=== PATIENT | female | born 1935 | race African-American/Black ===

== ENCOUNTER 2017-06-15 04:10 | Inpatient (IN) | payer OTHER ==
[~2017-06-15] VITALS: Ht 167.6 cm; Wt 93.8 kg
[2017-06-15] MEDS ORDERED: ONDANSETRON HCL 4 MG/2 ML VIAL IV ONE (04:45)
[2017-06-15] MEDS ORDERED: SODIUM CHLORIDE 0.9% 500 ML IVB ONE (04:45)
[2017-06-15] MEDS ORDERED: HYDROmorphone HCL 2 MG/ML VL IV ONE (04:45)
[2017-06-15 05:53] LABS: Allen Test Yes; Base Excess -2.4 mmol/L (-2.0-2.0); Blood 02Sat 96.6 % (96-100); Blood COHb 0.2 % (0.5-1.5); Blood MetHb 0.4 % (0.0-1.5); HHb 3.4 % (0.0-5.0); MODE NASAL CANNULA; PCO2 36.7 mmHg (35.0-45.0); PCO2(T) 36.7 mmHg (35.0-45.0); PO2 97.5 mmHg (80.0-100.0); PO2(T) 97.5 mmHg (80.0-100.0); Sample Type Arterial; pH 7.396 (7.350-7.450)
[2017-06-15 06:59] LABS: Basophils # (auto) 0 uL; CONDITION Y; DEFINITIVE SEE PRINTOUT; Eosinophils # (auto) 0 uL; Hematocrit 34.5 % (36.0-46.0); Hemoglobin 11.3 g/dL (12.2-16.2); Lymphocytes # (auto) 0.5 uL; Lymphocytes % (auto) 3.3 % (10.0-50.0); Mean Corpuscular Hemoglobin 25.7 pg (28.0-32.0); Mean Corpuscular Hgb Conc. 32.8 g/dL (32.0-36.0); Mean Corpuscular Volume 78.3 fL (80.0-100.0); Mean Platelet Volume 10.7 fL (7.4-10.4); Monocytes # (auto) 1.1 uL; Monocytes % (auto) 7.5 % (0.0-12.0); Neutrophils # (auto) 13.4 uL; Neutrophils % (auto) 89.2 % (37.0-80.0); Platelet Count (auto) 141 10^3/uL (140-450); Red Cell Distribution Width 16.4 % (11.6-16.0)
[2017-06-15 07:15] LABS: INR 0.99 (0.9-1.15); Prothrombin Time 10.8 sec (9.37-12.3)
[2017-06-15 07:21] LABS: Albumin 3.1 g/dL (3.4-5.0); BUN/Creatinine Ratio 17.1; Bilirubin, Total 0.6 mg/dL (0.2-1.0); Calcium 9.1 mg/dL (8.5-10.1); Magnesium 2.3 mg/dL (1.6-2.6); Potassium 3.4 mmol/L (3.5-5.1); Total Protein 6.8 g/dL (6.4-8.2)
[2017-06-15] MEDS ORDERED: POTASSIUM CHL 10% (20 MEQ/15ML) ORAL SOLN PO ONE (09:00)
[2017-06-15 09:58] LABS: Urine Bilirubin Negative (Negative); Urine Blood 2+ /uL (Negative); Urine Color Yellow (Yellow); Urine Glucose Normal (Normal); Urine Ketone TRACE (Negative); Urine Mucus FEW (None Seen); Urine Nitrite Negative (Negative); Urine RBC 2 /hpf (0 - 4); Urine Squamous Epithelial Cell FEW /hpf (<5); Urine Urobilinogen Normal (Negative); Urine pH 5.5 (5.0-8.0)
[2017-06-15] MEDS ORDERED: FLUO20CA19 PO (11:47)
[2017-06-15] MEDS ORDERED: AML5T PO (11:47)
[2017-06-15] MEDS ORDERED: TRAZ100T2 PO (11:47)
[2017-06-15] MEDS ORDERED: ALBU1AER4 IN (11:47)
[2017-06-15] MEDS ORDERED: GABA-339 PO (11:47)
[2017-06-15] MEDS ORDERED: IPRATROPIUM BROM 0.5 MG/2.5ML INH SOL NEB ONE (12:15)
[2017-06-15] MEDS ORDERED: ALBUTEROL SULF 2.5 MG/0.5ML(0.5%) NEB SOLN NEB ONE (12:15)
[2017-06-15] MEDS ORDERED: ACETAMINOPHEN 325 MG TAB PO ONE (12:15)
[2017-06-15] MEDS ORDERED: cloNIDine HCL 0.1 MG TAB PO PRN (13:00)
[2017-06-15] MEDS ORDERED: cefTRIAXone 1GM/50ML D5W 50 ML IV ONE (13:00)
[2017-06-15] MEDS ORDERED: VANCOMYCIN PER PHARMACY 0 MG IV SCH (13:00)
[2017-06-15] MEDS ORDERED: DEXTROSE (50%) 50ML SYRG IV PRN (13:00)
[2017-06-15] MEDS ORDERED: NITROGLYCERIN 0.4 MG SL TAB SL PRN (13:15)
[2017-06-15] MEDS ORDERED: TEMAZEPAM 15 MG CAP PO PRN (13:15)
[2017-06-15] MEDS ORDERED: MORPHINE SULF INJ 2 MG/ML SYRINGE 1ML IV PRN (13:15)
[2017-06-15] MEDS ORDERED: ONDANSETRON HCL 4 MG/2 ML VIAL IV PRN (13:15)
[2017-06-15] MEDS ORDERED: DOCUSATE SOD 100 MG CAP PO PRN (13:15)
[2017-06-15] MEDS: SODIUM CHLOR 0.9% PF (SALINE LOCK) 10ML VIAL IV SCH ×2 (13:34→22:00)
[2017-06-15 13:38] LABS: Lactic Acid w/Reflex 2.2 mmol/L (0.4-2.0)
[2017-06-15 13:41] LABS: REFLEX LACTIC ACID YES OR NO NO
[2017-06-15] MEDS ORDERED: MULTIPLE VITAMIN TAB PO ONE (13:45)
[2017-06-15] MEDS ORDERED: amLODIPine BESYLATE 5 MG TAB PO ONE (13:45)
[2017-06-15] MEDS ORDERED: FAMOTIDINE 20 MG TAB PO ONE (13:45)
[2017-06-15 13:50] LABS: B-Type Natriuretic Peptide 124.33 pg/mL (0-100)
[2017-06-15] MEDS: GABAPENTIN 400 MG CAP PO SCH ×2 (13:50→23:05)
[2017-06-15] MEDS ORDERED: GABAPENTIN 300 MG CAP PO SCH (14:00)
[2017-06-15] MEDS ORDERED: VANCOMYCIN 1GM/250ML D5W 250 ML IV ONE (14:00)
[2017-06-15] MEDS ORDERED: VANCOMYCIN 1,250 MG in D5W 5% 250 ML IV ONE (14:00)
[2017-06-15 15:30] VITALS: BP 122/54
[2017-06-15] MEDS: InsuLIN REG 1unit/0.01ml Soln (100units/ml) SC SCH ×2 (17:00→23:05)
[2017-06-15] MEDS: ACCU-CHEK COMFORT CURVE STRIP VI SCH ×2 (17:00→22:00)
[2017-06-15] MEDS: ALBUTEROL SULF 2.5 MG/0.5ML(0.5%) NEB SOLN NEB SCH (17:38)
[2017-06-15] MEDS: IPRATROPIUM BROM 0.5 MG/2.5ML INH SOL NEB SCH (17:39)
[2017-06-15 18:07] LABS: Allen Test Yes; Base Excess -2.8 mmol/L (-2.0-2.0); Blood 02Sat 81.4 % (96-100); Blood COHb 0.1 % (0.5-1.5); Blood MetHb 0.4 % (0.0-1.5); HCO3 24.7 mmol/L (22-26.0); HHb 18.5 % (0.0-5.0); MODE NASAL CANNULA; PCO2 54.4 mmHg (35.0-45.0); PCO2(T) 54.4 mmHg (35.0-45.0); PO2 50.8 mmHg (80.0-100.0); PO2(T) 50.8 mmHg (80.0-100.0); Room 0244ADST; Sample Type Arterial; pH 7.275 (7.350-7.450)
[2017-06-15] MEDS: Boost Glucose Control 8 Ounces PO SCH (18:16)
[2017-06-15] MEDS: FLUoxetine HCL 20 MG CAP PO SCH (18:31)
[2017-06-15] MEDS ORDERED: methylPREDNISolone SOD SUCC 125 MG/2 ML VL IV ONE (19:00)
[2017-06-15 20:00] VITALS: BP 132/97
[2017-06-15 20:13] VITALS: BP 122/54
[2017-06-15 20:20] LABS: Allen Test Yes; Base Excess -1.3 mmol/L (-2.0-2.0); Blood 02Sat 96.2 % (96-100); Blood COHb 0.3 % (0.5-1.5); Blood MetHb 0.5 % (0.0-1.5); HCO3 22.7 mmol/L (22-26.0); HHb 3.8 % (0.0-5.0); MODE MASK - BIPAP; O2Hb 95.4 % (94.0-97.0); PCO2 35.6 mmHg (35.0-45.0); PCO2(T) 36.4 mmHg (35.0-45.0); PIP 10; PO2 88.2 mmHg (80.0-100.0); Room 0296T; Sample Type Arterial; Spont Vt 567; pH 7.422 (7.350-7.450)
[2017-06-15 22:00] VITALS: BP 114/52
[2017-06-15] MEDS ORDERED: FAMOTIDINE 20 MG TAB PO SCH (22:00)
[2017-06-15] MEDS: traZODone HCL 50 MG TAB PO SCH (23:04)
[2017-06-15] MEDS: methylPREDNISolone SOD SUCC 40 MG/ML VL IV SCH (23:06)
[2017-06-16] VITALS (7 sets, daily range): BP systolic 101–122; BP diastolic 45–66
[2017-06-16] MEDS: ALBUTEROL SULF 2.5 MG/0.5ML(0.5%) NEB SOLN NEB SCH ×4 (02:55→20:21)
[2017-06-16] MEDS: IPRATROPIUM BROM 0.5 MG/2.5ML INH SOL NEB SCH ×4 (02:55→20:21)
[2017-06-16 06:18] LABS: CONDITION Y; DEFINITIVE SEE PRINTOUT; Hematocrit 33.2 % (36.0-46.0); Hemoglobin 10.8 g/dL (12.2-16.2); Mean Corpuscular Hemoglobin 26.1 pg (28.0-32.0); Mean Corpuscular Hgb Conc. 32.7 g/dL (32.0-36.0); Mean Corpuscular Volume 79.8 fL (80.0-100.0); Mean Platelet Volume 11.6 fL (7.4-10.4); Platelet Count (auto) 127 10^3/uL (140-450); Red Cell Distribution Width 16.5 % (11.6-16.0); SUSPECT SEE PRINTOUT; White Blood Cell 15.7 10^3/uL (4.4-10.8)
[2017-06-16 06:39] LABS: Albumin 2.6 g/dL (3.4-5.0); Calcium 8.5 mg/dL (8.5-10.1); Potassium 4.4 mmol/L (3.5-5.1)
[2017-06-16] MEDS: GABAPENTIN 400 MG CAP PO SCH ×3 (06:43→21:00)
[2017-06-16] MEDS: methylPREDNISolone SOD SUCC 40 MG/ML VL IV SCH ×3 (06:44→17:58)
[2017-06-16] MEDS: SODIUM CHLOR 0.9% PF (SALINE LOCK) 10ML VIAL IV SCH ×3 (06:44→20:47)
[2017-06-16 06:45] LABS: Bilirubin, Total 0.4 mg/dL (0.2-1.0); Total Protein 6.2 g/dL (6.4-8.2)
[2017-06-16] MEDS: ACCU-CHEK COMFORT CURVE STRIP VI SCH ×4 (06:50→21:02)
[2017-06-16] MEDS: InsuLIN REG 1unit/0.01ml Soln (100units/ml) SC SCH ×4 (06:55→21:02)
[2017-06-16 07:22] LABS: Metamyelocytes % 0; Myelocytes % 0; Promyelocytes % 0; Reactive Lymphocytes 0
[2017-06-16] MEDS: Boost Glucose Control 8 Ounces PO SCH ×3 (08:16→17:58)
[2017-06-16 08:40] LABS: Hypochromia Slight; Large Platelets FEW; Platelet Estimate Decreased
[2017-06-16] MEDS: FLUoxetine HCL 20 MG CAP PO SCH ×2 (08:48→17:58)
[2017-06-16] MEDS: PIPERACILLIN-TAZOB 3.375GM/D5W100ML IV SCH ×3 (08:48→20:47)
[2017-06-16] MEDS ORDERED: cefTRIAXone 1GM/50ML D5W 50 ML IV SCH (09:00)
[2017-06-16] MEDS: amLODIPine BESYLATE 5 MG TAB PO SCH (10:00)
[2017-06-16] MEDS: ENOXAPARIN SOD 40 MG/0.4 ML SYRINGE SC SCH (10:00)
[2017-06-16] MEDS: FAMOTIDINE 20 MG TAB PO SCH (10:00)
[2017-06-16] MEDS: MULTIPLE VITAMIN TAB PO SCH (10:00)
[2017-06-16] MEDS: HYDROcodone-ACET 5/325MG TAB PO PRN ×2 (10:29→19:42)
[2017-06-16] MEDS: SOD CHL 0.45% 1,000 ML IV SCH (11:31)
[2017-06-16] MEDS: ACETAMINOPHEN 325 MG TAB PO PRN (20:48)
[2017-06-16] MEDS: traZODone HCL 50 MG TAB PO SCH (21:01)
[2017-06-16] MEDS ORDERED: cloNIDine HCL 0.1 MG TAB PO PRN (23:30)
[2017-06-17] MEDS: methylPREDNISolone SOD SUCC 40 MG/ML VL IV SCH ×4 (00:12→18:18)
[2017-06-17] MEDS: PIPERACILLIN-TAZOB 3.375GM/D5W100ML IV SCH ×4 (03:28→20:44)
[2017-06-17 03:58] LABS: Basophils # (auto) 0 uL; CONDITION Y; DEFINITIVE SEE PRINTOUT; Eosinophils # (auto) 0 uL; Hematocrit 33.4 % (36.0-46.0); Hemoglobin 10.6 g/dL (12.2-16.2); Lymphocytes # (auto) 0.3 uL; Lymphocytes % (auto) 2.1 % (10.0-50.0); Mean Corpuscular Hemoglobin 25.4 pg (28.0-32.0); Mean Corpuscular Hgb Conc. 31.6 g/dL (32.0-36.0); Mean Corpuscular Volume 80.4 fL (80.0-100.0); Mean Platelet Volume 11.6 fL (7.4-10.4); Monocytes # (auto) 0.3 uL; Monocytes % (auto) 2.3 % (0.0-12.0); Neutrophils # (auto) 12.6 uL; Neutrophils % (auto) 95.6 % (37.0-80.0); Platelet Count (auto) 129 10^3/uL (140-450); Red Cell Distribution Width 16.5 % (11.6-16.0); SUSPECT SEE PRINTOUT; White Blood Cell 13.2 10^3/uL (4.4-10.8)
[2017-06-17 04:03] LABS: BUN/Creatinine Ratio 25.9; Calcium 9.2 mg/dL (8.5-10.1); Lactic Acid w/Reflex 2.2 mmol/L (0.4-2.0); Magnesium 2.7 mg/dL (1.6-2.6); Phosphorus 2.6 mg/dL (2.5-4.90); Potassium 4.6 mmol/L (3.5-5.1)
[2017-06-17 04:23] LABS: REFLEX LACTIC ACID YES OR NO YES
[2017-06-17 05:30] VITALS: BP 111/60
[2017-06-17] MEDS: SOD CHL 0.45% 1,000 ML IV SCH ×2 (05:57→14:10)
[2017-06-17] MEDS: SODIUM CHLOR 0.9% PF (SALINE LOCK) 10ML VIAL IV SCH ×3 (05:58→21:42)
[2017-06-17] MEDS: GABAPENTIN 400 MG CAP PO SCH ×4 (05:59→21:42)
[2017-06-17] MEDS: ACCU-CHEK COMFORT CURVE STRIP VI SCH ×4 (05:59→22:00)
[2017-06-17] MEDS: InsuLIN REG 1unit/0.01ml Soln (100units/ml) SC SCH ×5 (05:59→22:00)
[2017-06-17] MEDS: IPRATROPIUM BROM 0.5 MG/2.5ML INH SOL NEB SCH ×4 (06:26→18:18)
[2017-06-17] MEDS: ALBUTEROL SULF 2.5 MG/0.5ML(0.5%) NEB SOLN NEB SCH ×4 (06:26→22:41)
[2017-06-17 07:30] VITALS: BP 115/67
[2017-06-17] MEDS: Boost Glucose Control 8 Ounces PO SCH ×3 (08:22→18:00)
[2017-06-17] MEDS: FLUoxetine HCL 20 MG CAP PO SCH ×2 (08:23→18:19)
[2017-06-17 09:32] VITALS: BP 115/67
[2017-06-17] MEDS: FAMOTIDINE 20 MG TAB PO SCH (10:54)
[2017-06-17] MEDS: ENOXAPARIN SOD 40 MG/0.4 ML SYRINGE SC SCH (10:54)
[2017-06-17] MEDS: amLODIPine BESYLATE 5 MG TAB PO SCH (10:55)
[2017-06-17] MEDS: MULTIPLE VITAMIN TAB PO SCH (10:55)
[2017-06-17 12:50] VITALS: BP 114/57
[2017-06-17] MEDS: HYDROcodone-ACET 5/325MG TAB PO PRN (14:07)
[2017-06-17] MEDS ORDERED: ALBUTEROL SULF 2.5 MG/0.5ML(0.5%) NEB SOLN NEB SCH (16:00)
[2017-06-17 17:03] VITALS: BP 103/48
[2017-06-17] MEDS: traZODone HCL 50 MG TAB PO SCH (21:42)
[2017-06-17 22:00] VITALS: BP 114/55
[2017-06-17] MEDS: ACETAMINOPHEN 325 MG TAB PO PRN (22:56)
[2017-06-18] MEDS: methylPREDNISolone SOD SUCC 40 MG/ML VL IV SCH ×2 (00:07→05:42)
[2017-06-18] MEDS: ALBUTEROL SULF 2.5 MG/0.5ML(0.5%) NEB SOLN NEB SCH ×4 (02:00→14:05)
[2017-06-18] MEDS: PIPERACILLIN-TAZOB 3.375GM/D5W100ML IV SCH ×2 (03:08→09:00)
[2017-06-18] MEDS: SOD CHL 0.45% 1,000 ML IV SCH (03:18)
[2017-06-18 05:00] VITALS: BP 138/62
[2017-06-18 05:40] LABS: Basophils # (auto) 0 uL; CONDITION Y; DEFINITIVE SEE PRINTOUT; Eosinophils # (auto) 0 uL; Hematocrit 36.5 % (36.0-46.0); Hemoglobin 11.7 g/dL (12.2-16.2); Lymphocytes # (auto) 0.5 uL; Lymphocytes % (auto) 5.8 % (10.0-50.0); Mean Corpuscular Hemoglobin 25.4 pg (28.0-32.0); Mean Corpuscular Volume 79.4 fL (80.0-100.0); Mean Platelet Volume 11.5 fL (7.4-10.4); Monocytes # (auto) 0.2 uL; Monocytes % (auto) 2.4 % (0.0-12.0); Neutrophils # (auto) 7.5 uL; Neutrophils % (auto) 91.8 % (37.0-80.0); Platelet Count (auto) 140 10^3/uL (140-450); SUSPECT SEE PRINTOUT; White Blood Cell 8.2 10^3/uL (4.4-10.8)
[2017-06-18] MEDS: IPRATROPIUM BROM 0.5 MG/2.5ML INH SOL NEB SCH ×3 (05:42→09:45)
[2017-06-18] MEDS: SODIUM CHLOR 0.9% PF (SALINE LOCK) 10ML VIAL IV SCH (05:42)
[2017-06-18] MEDS: GABAPENTIN 400 MG CAP PO SCH (05:42)
[2017-06-18 06:01] LABS: BUN/Creatinine Ratio 23.5; Calcium 9.7 mg/dL (8.5-10.1); Potassium 4.3 mmol/L (3.5-5.1)
[2017-06-18] MEDS: ACCU-CHEK COMFORT CURVE STRIP VI SCH ×2 (06:51→11:30)
[2017-06-18] MEDS: InsuLIN REG 1unit/0.01ml Soln (100units/ml) SC SCH ×2 (06:52→11:30)
[2017-06-18 07:30] VITALS: BP 129/58
[2017-06-18] MEDS: Boost Glucose Control 8 Ounces PO SCH (08:00)
[2017-06-18 09:00] VITALS: BP 129/58
[2017-06-18] MEDS: FLUoxetine HCL 20 MG CAP PO SCH (09:24)
[2017-06-18] MEDS: FAMOTIDINE 20 MG TAB PO SCH (10:00)
[2017-06-18] MEDS: ENOXAPARIN SOD 40 MG/0.4 ML SYRINGE SC SCH (10:00)
[2017-06-18] MEDS ORDERED: LEVOFLOXACIN 500 MG TAB PO ONE (11:00)
[2017-06-18] MEDS: MULTIPLE VITAMIN TAB PO SCH (11:08)
[2017-06-18] MEDS: amLODIPine BESYLATE 5 MG TAB PO SCH (11:09)
[2017-06-18] MEDS ORDERED: guaiFENesin 200 MG/10 ML UD PO ONE (11:15)
[2017-06-18 13:00] VITALS: BP 128/57
[2017-06-18 13:39] VITALS: BP 128/57
== END 2017-06-18 15:00 | disposition home health service (06) | DRG 871 ==
LOC: EDBD 04:10 → EDSEX 04:10 → ER 04:10 → TELE 04:11 → TELE-E-ADS 14:43 → TELE-WESTW 18:20
PROVIDERS: ADMIT Internal Medicine; ATTEND Internal Medicine
PROC: 5A09357 Assistance with Respiratory Ventilation, Less than 24 Consecutive Hours, Continuous Positive Airway Pressure (ICD-10-PCS; principal; 2017-06-15)
DX: A41.9 Sepsis, unspecified organism (principal); G93.41 Metabolic encephalopathy; E44.0 Moderate protein-calorie malnutrition; J44.0 Chronic obstructive pulmonary disease with (acute) lower respiratory infection; I13.0 Hypertensive heart and chronic kidney disease with heart failure and stage 1 through stage 4 chronic kidney disease, or unspecified chronic kidney disease; J44.1 Chronic obstructive pulmonary disease with (acute) exacerbation; N39.0 Urinary tract infection, site not specified; I50.9 Heart failure, unspecified; W18.39XA Other fall on same level, initial encounter; B96.20 Unspecified Escherichia coli [E. coli] as the cause of diseases classified elsewhere; B96.89 Other specified bacterial agents as the cause of diseases classified elsewhere; D50.9 Iron deficiency anemia, unspecified; E87.6 Hypokalemia; J20.9 Acute bronchitis, unspecified; K44.9 Diaphragmatic hernia without obstruction or gangrene; K57.30 Diverticulosis of large intestine without perforation or abscess without bleeding; F41.9 Anxiety disorder, unspecified; N18.2 Chronic kidney disease, stage 2 (mild); I70.0 Atherosclerosis of aorta; Y93.89 Activity, other specified; Z68.33 Body mass index [BMI] 33.0-33.9, adult; Y92.098 Other place in other non-institutional residence as the place of occurrence of the external cause; Y99.8 Other external cause status; Z88.5 Allergy status to narcotic agent; Z87.440 Personal history of urinary (tract) infections; Z82.49 Family history of ischemic heart disease and other diseases of the circulatory system; Z90.49 Acquired absence of other specified parts of digestive tract
CPT/HCPCS: 36415; 36600; 51702; 70450; 71010; 74176; 76705; 76775; 80048; 80053; 80202; 81001; 82150; 82805; 82962; 83036; 83540; 83605; 83690; 83735; 83880; 84100; 84443; 84484; 85007; 85025; 85027; 85610; 85730; 86141; 87040; 87077; 87086; 87088; 87186; 93005; 93306; 94640; 94660; 94761; 96361; 96374; 96375; 97163; J0696; J1815; J2405; J2543; J7060

== ENCOUNTER 2019-09-03 13:58 | Emergency (ER) | payer OTHER ==
[~2019-09-03] VITALS: Ht 165.1 cm; Wt 88.5 kg
[~2019-09-03 13:58] MED LIST: ALBU1AER4 IN; AML5T PO; FLUO20CA19 PO; GABA-339 PO
[2019-09-03 14:44] LABS: Basophils # (auto) 0 uL; Basophils % (auto) 0.4 % (0.0-2.0); Eosinophils # (auto) 0.1 uL; Lymphocytes # (auto) 0.8 uL; Nucleated Red Blood Cells % 0.1 %; White Blood Cell 7.5 10^3/uL (4.4-10.8)
[2019-09-03 14:46] LABS: Eosinophils % (auto) 1.1 % (0.0-7.0); Hematocrit 39.9 % (36.0-46.0); Hemoglobin 12.9 g/dL (12.2-16.2); Lymphocytes % (auto) 10.3 % (10.0-50.0); Mean Corpuscular Hemoglobin 26.5 pg (28.0-32.0); Mean Corpuscular Hgb Conc. 32.3 g/dL (32.0-36.0); Monocytes # (auto) 0.5 uL; Monocytes % (auto) 6.9 % (0.0-12.0); Neutrophils # (auto) 6.1 uL; Neutrophils % (auto) 81.3 % (37.0-80.0); Platelet Count (auto) 158 10^3/uL (140-450); Red Blood Cells 4.87 10^6/uL (4.0-5.20); Red Cell Distribution Width 16.4 % (11.8-14.3)
[2019-09-03 14:51] LABS: Alanine Aminotransferase 16 U/L (13-56); Albumin 3.7 g/dL (3.4-5.0); Anion Gap 5 (5-15); Aspartate Aminotransferase 11 U/L (15-37); BUN/Creatinine Ratio 15.5; Blood Urea Nitrogen 15 mg/dL (7-18); Calcium 9.1 mg/dL (8.5-10.1); Carbon Dioxide 28 mmol/L (21-32); Chloride 105 mmol/L (98-107); GFR African American 70 mL/min; GFR Non-African American 58 mL/min; Glucose 91 mg/dL (74-106); Potassium 3.4 mmol/L (3.5-5.1); Sodium 138 mmol/L (136-145)
[2019-09-03 14:59] LABS: Alkaline Phosphatase 265 U/L (45-117); Bilirubin, Total 0.5 mg/dL (0.2-1.0); Total Protein 7.2 g/dL (6.4-8.2)
[2019-09-03] MEDS ORDERED: ACETAMINOPHEN 325 MG TAB PO ONE (17:30)
[2019-09-03 17:32] VITALS: BP 146/60
== END 2019-09-03 18:10 | disposition home or self-care (01) ==
LOC: ER 13:58
DX: M25.512 Pain in left shoulder (principal); M25.511 Pain in right shoulder; M54.2 Cervicalgia; R11.2 Nausea with vomiting, unspecified; J44.9 Chronic obstructive pulmonary disease, unspecified; I10 Essential (primary) hypertension; Z88.6 Allergy status to analgesic agent; W06.XXXA Fall from bed, initial encounter; Y93.84 Activity, sleeping; Y92.092 Bedroom in other non-institutional residence as the place of occurrence of the external cause; Y99.8 Other external cause status
CPT/HCPCS: 36415; 70450; 71045; 72125; 73030; 80053; 84484; 85025; 93005

== ENCOUNTER 2019-09-19 13:12 | Emergency (ER) | payer OTHER ==
[~2019-09-19] VITALS: Ht 165.1 cm; Wt 127.0 kg
[2019-09-19] MEDS ORDERED: ONDANSETRON HCL 4 MG/2 ML VIAL IV ONE (14:45)
[2019-09-19] MEDS ORDERED: MORPHINE SULF INJ 2 MG/ML SYRINGE 1ML IV ONE (14:45)
[2019-09-19 15:01] LABS: Hematocrit 41.8 % (36.0-46.0); Hemoglobin 13.2 g/dL (12.2-16.2); Mean Corpuscular Hemoglobin 25.6 pg (28.0-32.0); Mean Corpuscular Hgb Conc. 31.6 g/dL (32.0-36.0); Mean Corpuscular Volume 81.1 fL (80.0-100.0); Platelet Count (auto) 302 10^3/uL (140-450); Red Blood Cells 5.16 10^6/uL (4.0-5.20); Red Cell Distribution Width 16.3 % (11.8-14.3); White Blood Cell 12.9 10^3/uL (4.4-10.8)
[2019-09-19 15:04] LABS: Basophils % (manual) 0 (0.0-2.0); Blast Cells 0; Eosinophils % (manual) 0 (0-7); Metamyelocytes % 0; Myelocytes % 0; Promyelocytes % 0; Reactive Lymphocytes 0
[2019-09-19 15:11] LABS: INR 1.13 (0.9-1.15); Partial Thromboplastin Time 22.3 sec (23.64-32.05)
[2019-09-19 15:16] LABS: Alanine Aminotransferase 21 U/L (13-56); Albumin 2.4 g/dL (3.4-5.0); Anion Gap 9 (5-15); Aspartate Aminotransferase 19 U/L (15-37); BUN/Creatinine Ratio 23.5; Blood Urea Nitrogen 19 mg/dL (7-18); Carbon Dioxide 26 mmol/L (21-32); Chloride 97 mmol/L (98-107); GFR African American 86 mL/min; GFR Non-African American 71 mL/min; Glucose 108 mg/dL (74-106); Potassium 3.9 mmol/L (3.5-5.1); Sodium 132 mmol/L (136-145)
[2019-09-19 15:21] LABS: Alkaline Phosphatase 201 U/L (45-117); Bilirubin, Total 0.4 mg/dL (0.2-1.0); Total Protein 7.6 g/dL (6.4-8.2)
[2019-09-19 15:28] LABS: Urine WBC None Seen /hpf (0 - 5)
[2019-09-19 15:41] LABS: Band Neutrophils % (manual) 1; Lymphocytes % (manual) 2 (10.0-50.0); Monocytes % (manual) 3 (0-12)
[2019-09-19 15:56] LABS: Urine Bacteria NONE SEEN /hpf (None Seen); Urine Blood Negative /uL (Negative); Urine Specific Gravity 1.022 (1.001-1.035)
[2019-09-19] MEDS ORDERED: HYDROcodone-ACET 10/325MG TAB PO ONE (18:00)
[2019-09-19 18:05] VITALS: BP 134/70
== END 2019-09-19 19:17 | disposition home or self-care (01) ==
LOC: ER 13:12 → EDBD 13:12 → ER 19:04
DX: S43.401A Unspecified sprain of right shoulder joint, initial encounter (principal); S63.501A Unspecified sprain of right wrist, initial encounter; M19.011 Primary osteoarthritis, right shoulder; J44.9 Chronic obstructive pulmonary disease, unspecified; I10 Essential (primary) hypertension; Z90.49 Acquired absence of other specified parts of digestive tract; W19.XXXA Unspecified fall, initial encounter; Y93.89 Activity, other specified; Y99.8 Other external cause status; Y92.89 Other specified places as the place of occurrence of the external cause
CPT/HCPCS: 36415; 73030; 73110; 73130; 74176; 80053; 81001; 83735; 84484; 85007; 85027; 85610; 85730; 93005; 96374; 96375; 99284; J2270; J2405